=== PATIENT | female | born 1990 | race Hispanic/Latino ===

== ENCOUNTER 2023-04-15 11:54 | Emergency (ER) | payer SELFPAY ==
[~2023-04-15] VITALS: Ht 160 cm; Wt 63.8 kg
[~2023-04-15 11:54] MED LIST: LORTAB 5/3255 MG PO; LORTAB 7.57.5 MG/TAB OR; MOTRIN600 MG/TAB PO; NO; NO CURRENT MEDS; PRENATAL1 TA1 PO
[2023-04-15 12:02] VITALS: BP 106/86
[2023-04-15 12:09] VITALS: BP 106/86
[2023-04-15 12:29] LABS: BASO% 0.6 % (0-3); EOS% 1.2 % (0-8); IMMATURE GRANULOCYTES 0.3 % (0.0-5.0); LYMPH% 27.8 % (15-41); MEAN CELL VOLUME 87.3 fL CALC (80.0-100.0); MEAN CORPUSCULAR HGB 29.2 pG CALC (26.0-32.0); MEAN CORPUSCULAR HGB CONC 33.4 g/dL CAL (32.0-36.0); MONO% 6.5 % (2-13); NEUT# 5.74 thou/uL (2.00-7.15); NEUT% 63.6 % (42-76); RED BLOOD COUNT 4.56 mill/uL (4.20-5.60); RED CELL DISTRI WIDTH 12.2 % (11.5-15.5)
[2023-04-15 12:50] LABS: ANION GAP 17 (6-22 (CALC)); BILIRUBIN, TOTAL 0.5 mg/dL (0.02-1.3); BUN 12 mg/dL (7-17); BUN/CREATININE RATIO 23 (12-20 (CALC)); CARBON DIOXIDE 19 mmol/l (22-30); CHLORIDE 109 mmol/l (95-108); CREATININE 0.5 mg/dL (0.5-1.0); GFR FOR AFR.AMER. > 60 ML/MIN (>=60 (CALC)); GFR OTHER RACES > 60 ML/MIN (>=60 (CALC)); POTASSIUM 3.9 mmol/l (3.5-5.1); SGOT/AST 30 u/l (14-36); SODIUM 141 mmol/l (137-146)
[2023-04-15 12:53] LABS: ALBUMIN 4.9 g/dL (3.2-5.0); ALKALINE PHOSPHATASE 119 u/l (38-126); HEMATOCRIT 39.8 % (37.0-47.0); HEMOGLOBIN 13.3 g/dl (12.0-16.0); TOTAL PROTEIN 8.3 g/dL (6.3-8.2)
[2023-04-15] MEDS ORDERED: GABAPENTIN100 MG PO (13:19)
== END 2023-04-15 13:47 | disposition home or self-care (01) | DRG 74 ==
LOC: ED 11:54
PROVIDERS: Family Medicine
DX: G62.9 Polyneuropathy, unspecified (principal)